=== PATIENT | female | born 1985 | race Caucasian/White ===

== ENCOUNTER 2017-08-08 19:48 | Emergency (ER) | payer BC, OTHER ==
[~2017-08-08] VITALS: Ht 165.1 cm; Wt 58.0 kg
[~2017-08-08 19:48] MED LIST: ADVI200C3 PO; PREN27TA4 PO
[2017-08-08 19:54] VITALS: BP 128/87; PULSE 86; RESP 18; TEMP 98.7; O2SAT 100
--- NOTE | 2017-08-08 20:50 | RADRPT ---
EXAM DATE/TIME: 08/08/2017 20:43 [place] COMPARISON: No previous studies available for comparison. INDICATIONS : Shortness of breath and chest pain. MEDICAL HISTORY : None. SURGICAL HISTORY : None. ENCOUNTER: Initial ACUITY: 2 days PAIN SCORE: 3/10 LOCATION: chest FINDINGS: PA and lateral views of the chest demonstrate the lungs to be symmetrically aerated without evidence of mass, infiltrate or effusion. The cardiomediastinal contours are unremarkable. Scoliotic thoracic spine. CONCLUSION: No acute disease. Christian Arredondo Jr., MD on August 08, 2017 at 20:48 Board Certified Radiologist. This report was verified electronically.
[2017-08-08] MEDS ORDERED: EXCETAB31 (21:01)
[2017-08-08 21:21] LABS: AUTOMATED NEUTROPHIL # 6.7 TH/MM3 (1.8-7.7); BASOPHIL # 0.1 TH/MM3 (0-0.2); BASOPHIL % 0.6 % (0.0-2.0); EOSINOPHIL # 0.1 TH/MM3 (0-0.4); EOSINOPHIL % 1.1 % (0.0-4.0); HEMATOCRIT 40.3 % (35.0-46.0); HEMO FLAGS DIFF FINAL; LYMPH % 38.1 % (9.0-44.0); LYMPHOCYTE # 4.6 TH/MM3 (1.0-4.8); MEAN CELL VOLUME 92.7 FL (80.0-100.0); MEAN CORPUSCULAR HEMOGLOBIN 30.9 PG (27.0-34.0); MEAN CORPUSCULAR HGB CONC 33.3 % (32.0-36.0); MONO % 4.5 % (0.0-8.0); NEUT % 55.7 % (16.0-70.0); PLATELET COUNT 352 TH/MM3 (150-450); RED BLOOD COUNT 4.35 MIL/MM3 (4.00-5.30); RED CELL DISTRIBUTION WIDTH 13.8 % (11.6-17.2); WHITE BLOOD COUNT 11.9 TH/MM3 (4.0-11.0)
[2017-08-08 21:32] LABS: APTT (PATIENT) 25.6 SEC (24.3-30.1); INTERNATIONAL NORMALIZED RATIO 0.9 RATIO; PROTHROMBIN TIME - PATIENT 9.7 SEC (9.8-11.6)
[2017-08-08 21:42] LABS: ALT (GPT) 18 U/L (10-53); ANION GAP 7 MEQ/L (5-15); AST (GOT) 15 U/L (15-37); BICARBONATE 25.9 MEQ/L (21.0-32.0); BLOOD UREA NITROGEN 10 MG/DL (7-18); CHLORIDE 105 MEQ/L (98-107); GLOMERULAR FILTRATION RATE 114 ML/MIN (>89); MAGNESIUM 2.1 MG/DL (1.5-2.5); POTASSIUM 3.8 MEQ/L (3.5-5.1); SODIUM (NA) 138 MEQ/L (136-145)
[2017-08-08 21:46] LABS: ALKALINE PHOSPHATASE 65 U/L (45-117); TOTAL BILIRUBIN ADULT 0.4 MG/DL (0.2-1.0)
[2017-08-08 21:48] LABS: CREATINE KINASE 74 U/L (26-192)
--- NOTE | 2017-08-08 21:50 | PD ---
HPI Chief Complaint: Chest Pain Time Seen by Provider: 21:08 Travel History International Travel<30 days: No Contact w/Intl Traveler<30days: No Traveled to known affect area: No History of Present Illness HPI Patient is a 31-year-old female today at work she was sitting in her chair she suddenly felt left-sided chest pain just above her left breast and it radiated up she felt nauseous they said that she looked flushed it lasted off and on she says as it has for the last 2 days she has vomited and had diarrhea for 2 days she do not want to come to the hospital but didn't work made her warfarin come and pick her up and bring her him she has no significant past medical history she is not diabetic not hypertensive in the ER she is awake alert oriented denies any chest pain at this time EKG is normal sinus rhythm at a rate of 72 bpm PFS Past Medical History Seizures: Yes ( A SMALL CHILD) Tetanus Vaccination: Unknown ?: Not LMP: 07/15/17 : 5 Para: 2 Miscarriage: 1 : 1 Past Surgical History Surgical History: No Previous Surgery Oral Surgery: Yes (WISDOM TEETH) Social History Alcohol Use: Yes (ocasionally) Tobacco Use: Yes (1 pck/day) Substance Use: No Allergies-Medications (Allergen,Severity, Reaction): Coded Allergies: No Known Allergies (Unverified Adverse Reaction, Unknown, 08/08/17) Reported Meds & Prescriptions Reported Meds & Active Scripts Active Reported Excedrin Migraine Caplet (Aspirin/Acetaminophen/Caffeine) 250 Mg-250 Mg-65 Mg Tablet Review of Systems Except as stated in HPI: all other systems reviewed are Neg HENT: Positive: Headaches Cardiovascular: Positive: Chest Pain or Discomfort Gastrointestinal: Positive: Nausea, Vomiting, Diarrhea Physical Exam Narrative GENERAL: No apparent distress nontoxic appearance awake alert SKIN: Warm and dry. HEAD: Atraumatic. Normocephalic. EYES: Pupils equal and round. No scleral icterus. No injection or drainage. ENT: No nasal bleeding or discharge. Mucous membranes pink and moist. NECK: Trachea midline. No JVD. CARDIOVASCULAR: Regular rate and rhythm. RESPIRATORY: No accessory muscle use. Clear to auscultation. Breath sounds equal bilaterally. GASTROINTESTINAL: Abdomen soft, non-tender, nondistended. Hepatic and splenic margins not palpable. MUSCULOSKELETAL: Extremities without clubbing, cyanosis, or edema. No obvious deformities. NEUROLOGICAL: Awake and alert. No obvious cranial nerve deficits. Motor grossly within normal limits. Five out of 5 muscle strength in the arms and legs. Normal speech. PSYCHIATRIC: Appropriate mood and affect; insight and judgment normal. Data Data Last Documented VS Vital Signs Date Time Temp Pulse Resp B/P (MAP) Pulse Ox O2 Delivery O2 Flow Rate FiO2 08/08/17 21:04 71 100 Room Air 08/08/17 21:03 (101) 08/08/17 19:54 98.7 18 Orders Orders Ckmb (Isoenzyme) Profile (08/08/17 19:58) Complete Blood Count With Diff (08/08/17 19:58) Comprehensive Metabolic Panel (08/08/17 19:58) Magnesium (Mg) (08/08/17 19:58) Prothrombin Time / Inr (Pt) (08/08/17 19:58) Act Partial Throm Time (Ptt) (08/08/17 19:58) Troponin I (08/08/17 19:58) Lipase (08/08/17 19:58) Chest, Pa & Lat (08/08/17 19:58) Sodium Chlor 0.9% 1000 Ml Inj (Ns 1000 M (08/08/17 22:00) Pantoprazole Inj (Protonix Inj) (08/08/17 22:00) Ondansetron Inj (Zofran Inj) (08/08/17 22:00) Ed Discharge Order (08/08/17 22:23) Electrocardiogram (08/08/17 20:20) Labs Laboratory Tests Test 08/08/17 20:25 White Blood Count 11.9 TH/MM3 Red Blood Count 4.35 MIL/MM3 Hemoglobin 13.5 GM/DL Hematocrit 40.3 % Mean Corpuscular Volume 92.7 FL Mean Corpuscular Hemoglobin 30.9 PG Mean Corpuscular Hemoglobin Concent 33.3 % Red Cell Distribution Width 13.8 % Platelet Count 352 TH/MM3 Mean Platelet Volume 8.1 FL Neutrophils (%) (Auto) 55.7 % Lymphocytes (%) (Auto) 38.1 % Monocytes (%) (Auto) 4.5 % Eosinophils (%) (Auto) 1.1 % Basophils (%) (Auto) 0.6 % Neutrophils # (Auto) 6.7 TH/MM3 Lymphocytes # (Auto) 4.6 TH/MM3 Monocytes # (Auto) 0.5 TH/MM3 Eosinophils # (Auto) 0.1 TH/MM3 Basophils # (Auto) 0.1 TH/MM3 CBC Comment DIFF FINAL Differential Comment Prothrombin Time 9.7 SEC Prothromb Time International Ratio 0.9 RATIO Activated Partial Thromboplast Time 25.6 SEC Blood Urea Nitrogen 10 MG/DL Creatinine 0.61 MG/DL Random Glucose 82 MG/DL Total Protein 6.9 GM/DL Albumin 3.9 GM/DL Calcium Level 8.7 MG/DL Magnesium Level 2.1 MG/DL Alkaline Phosphatase 65 U/L Aspartate Amino Transf (AST/SGOT) 15 U/L Alanine Aminotransferase (ALT/SGPT) 18 U/L Total Bilirubin 0.4 MG/DL Sodium Level 138 MEQ/L Potassium Level 3.8 MEQ/L Chloride Level 105 MEQ/L Carbon Dioxide Level 25.9 MEQ/L Anion Gap 7 MEQ/L Estimat Glomerular Filtration Rate 114 ML/MIN Total Creatine Kinase 74 U/L Troponin I LESS THAN 0.02 NG/ML Lipase 229 U/L [facility] Medical Decision Making Medical Screen Exam Complete: Yes Emergency Medical Condition: Yes Differential Diagnosis Gastritis with GERD due to gastroenteritis vomiting and diarrhea for the last 2 days versus reflux disease versus panic attack versus cardiac cause lower on the differential versus pulmonary causes lower on the differential Narrative Course Physical exam is completely normal EKG is normal sinus rhythm at a rate of 72 bpm chest x-ray is normal liter of fluid is given Zofran and Protonix for any GI causes and discharged to follow-up as an outpatient Diagnosis Primary Impression: Gastritis Additional Impression: Chest pain, atypical Gato Conroy MD Aug 08, 2017 21:50
[2017-08-08] MEDS ORDERED: SODIUM CHLOR 0.9% 1000 ML INJ 1,000 ML IV ONE (22:00)
[2017-08-08] MEDS ORDERED: PANTOPRAZOLE SODIUM 40 MG VIAL IV PUSH ONE (22:00)
[2017-08-08] MEDS ORDERED: ONDANSETRON HCL 4 MG/2 ML VIAL IV PUSH ONE (22:00)
--- NOTE | 2017-08-09 07:39 | EKG ---
Date Performed: 08/08/2017 Time Performed: 20:20:21 PTAGE: 31 years EKG: Sinus rhythm WITH SINUS ARRHYTHMIA POSSIBLE LEFT ATRIAL ENLARGEMENT SEPTAL MYOCARDIAL INFARCTION ABNORMAL ECG NO PREVIOUS TRACING DOCTOR: Reji Clark Interpretating Date/Time 08/09/2017 07:37:55
== END 2017-08-08 23:18 | disposition home or self-care (01) ==
LOC: NEPC 19:48
DX: K29.70 Gastritis, unspecified, without bleeding (principal); F17.200 Nicotine dependence, unspecified, uncomplicated; R19.7 Diarrhea, unspecified
CPT/HCPCS: 71020; 80053; 82550; 83690; 83735; 84484; 85025; 85610; 85730; 93005; 96361; 96374; 96375; 99285; C9113; J2405; J7030